=== PATIENT | male | born 1990 | race Caucasian/White ===

== ENCOUNTER 2023-07-11 16:37 | Emergency (ER) | payer MEDICAID ==
[~2023-07-11] VITALS: Ht 172.7 cm; Wt 60.0 kg
[~2023-07-11 16:37] MED LIST: risperdal
[2023-07-11 16:57] VITALS: BP 134/101; RESP 18; TEMP 98; O2SAT 98
[2023-07-11 17:01] VITALS: PULSE 103
[2023-07-11] MEDS ORDERED: IBUP-1523 MT (20:45)
[2023-07-11] MEDS ORDERED: DEXT30SU17 MT (20:45)
[2023-07-11] MEDS ORDERED: TOPUD MT (20:45)
== END 2023-07-11 21:19 | disposition home or self-care (01) ==
LOC: ER 16:37
DX: R06.02 Shortness of breath (principal); R05.9 Cough, unspecified; F10.229 Alcohol dependence with intoxication, unspecified; F32.9 Major depressive disorder, single episode, unspecified; F15.10 Other stimulant abuse, uncomplicated; Y90.0 Blood alcohol level of less than 20 mg/100 ml
CPT/HCPCS: 99281

== ENCOUNTER 2023-08-12 02:23 | Emergency (ER) | payer MEDICAID ==
[~2023-08-12 02:23] MED LIST changes: +DEXT30SU17 MT; +IBUP-1523 MT; +TOPUD MT
[2023-08-12 02:36] VITALS: PULSE 67; RESP 16
== END 2023-08-12 05:01 | disposition left against medical advice (07) ==
LOC: ER 02:23
DX: Z53.21 Procedure and treatment not carried out due to patient leaving prior to being seen by health care provider (principal)
CPT/HCPCS: 99281

== ENCOUNTER 2023-09-16 18:29 | Emergency (ER) | payer MEDICAID ==
[~2023-09-16] VITALS: Ht 172.7 cm; Wt 58.0 kg
[2023-09-16 18:42] VITALS: BP 101/56; RESP 20; TEMP 98.2; O2SAT 98
[2023-09-16 19:01] VITALS: PULSE 107
== END 2023-09-16 23:25 | disposition left against medical advice (07) ==
LOC: ER 18:29
DX: M79.646 Pain in unspecified finger(s) (principal); Z53.21 Procedure and treatment not carried out due to patient leaving prior to being seen by health care provider
CPT/HCPCS: 99281